=== PATIENT | male | born 1960 | race Caucasian/White ===

== ENCOUNTER 2019-10-02 11:48 | Inpatient (IN) | payer MEDICAID, OTHER ==
[2019-10-02 12:53] VITALS: BP 133/73
[2019-10-02] MEDS ORDERED: Magnesium Hydroxide (MOM) 30 mL UDC PO PRN (13:26)
[2019-10-02] MEDS ORDERED: Acetaminophen 500 MG TAB PO PRN (13:26)
--- NOTE | 2019-10-02 14:32 | History and Physical ---
History of Present Illness - HPI Chief Complaint: Psychosis HPI: 59 y/o White female who has been transferred from [facility]. Admitted tp [facility] for the following: * Recurrent Major Depression * Suicidal Ideation * H/O Attempted Suicide Vital Signs: Last Vital Signs Temp Pulse Resp BP 133/73 10/02/19 12:23 Pulse Ox Past Medical History Cardiovascular: Report: HTN, Hyperlipidemia Pulmonary: Report: No Pertinent Hx LIQUOR GALLERY OPERATOR: Report: No Pertinent Hx GI: Report: No Pertinent Hx Psych: Report: Depression Musculoskeletal: Report: Osteoarthritis Rheumatologic: Report: No pertinent Hx Infectious Disease: Report: No Pertinent Hx Renal/: Report: No Pertinent Hx Endocrine: Report: No Pertinent Hx Dermatology: Report: Psoriasis - Past Surgical History Past Surgical History: Total Hip Replacement Social History Smoke: <1 pack per day Alcohol: None Drugs: None Lives: Alone Domestic Violence: Negative - Medications Home Medications: Home Medication Medication Instructions Recorded Type Acetaminophen 650 mg PO ONCE 10/02/19 History Buspirone HCl 10 mg PO TID 10/02/19 History Lorazepam [Ativan] 1 mg PO ONCE 10/02/19 History Mirtazapine [Remeron] 30 mg PO HS 10/02/19 History Ondansetron [Ondansetron Odt] 4 mg PO ONCE 10/02/19 History QUEtiapine Fumarate [SEROquel] 25 mg PO BID 10/02/19 History Sertraline [Zoloft] 50 mg PO DAILY 10/02/19 History - Allergies Allergies/Adverse Reactions: Allergies Allergy/AdvReac Type Severity Reaction Status Date / Time No Known Allergies Allergy Verified 10/02/19 12:23 Review of Systems - Review of Systems Constitutional: Report: No Significant Eyes: Report: No Significant ENT: Report: No Significant Respiratory: Report: No Significant Cardiovascular: Report: No Significant Gastrointestinal: Report: No Significant Genitourinary: Report: No Significant Musculoskeletal: Report: No Significant Skin: Report: No Significant Neurological: Report: No Significant Physical Exam - Physical Exam Neck: Report: Within normal limits Cardiovascular Systems: Report: +s1/s2 noted Respiratory: Report: Breath Sounds are within normal limits Abdomen: Report: Non-tender to palpation Back: Report: Inspection of back is within normal limits. Extremities: Report: Non-tender to palpation. Skin: Report: Skin Rash noted Neuro/Psych: Report: A+Ox3, CN II-XII intact, No motor deficit, No sensory deficit - Assessment Assessment: * Recurrent Major Depression severe and currently active with Command Hallucinations to harm self * Suicidal Behavior without attempted self injury * Depression with suicidal ideation * History of attempted suicide * Fatigue due to depression * Anxiety * Insomnia * Bereavement * Dysthymic disorder since childhood * Hypertension * Dyslipidemia * Psoriasis * Tobacco Abuse * S/P Bilateral Hip Replacement - Plan Plan: * Admitted to Behavioral Health unit at [facility] * Continue medications for [facility] * Psychiatry Consult * Obtain labs on Friday Cranial Nerve Assessment - CRANIAL NERVES alcohol swab:: Yes (Normal) Distinguishes movements in peripheral field.:: Yes (Normal) up, down, sideways:: Yes (Normal) on forehead, cheeks and chin, chews symmetrically:: Yes (Normal) FACIAL VII: upper: Frowns Symmetrically:: Yes (Normal) FACIAL VII: Lower: Smiles Symmetrically:: Yes (Normal) both ears:: Yes (Normal) GLOSS-PHARYNGEAL IX: Has gag reflex:: Yes (Normal) VAGUS X: Can make guttural sounds:: Yes (Normal) ACCESSORY XI: Shrugs shoulders symmetrically:: Yes (Normal) tremors or fasciculation's:: Yes (Normal) - MOTOR spasticity, cogwheel, atrophy, tremor, asterixis, other: No (Normal) - COORDINATION Finger to nose, heel to blackwood, VIRGILIO, gait, Romberg: Yes (Normal) - SENSORY signs, Brudzinski, Kernig, neck rigidity:: Yes (Normal) - REFLEXES Brachioradials Right:: Yes (Normal) Brachioradials Left:: Yes (Normal) Biceps Right:: Yes (Normal) Biceps Left:: Yes (Normal) Triceps Right:: Yes (Normal) Triceps Left:: Yes (Normal) Knee Right:: Yes (Normal) Knee Left:: Yes (Normal) Ankle Right:: Yes (Normal) Ankle Left:: Yes (Normal) Babinski Right:: No (Normal) Babinski Left:: No (Normal)
[2019-10-03] MEDS: Multivitamin Tab PO SCH (09:00)
--- NOTE | 2019-10-03 11:23 | Psychiatric Evaluation ---
DATE OF SERVICE: 10/02/2019 IDENTIFYING DATA: The patient is a 59-year-old male, currently homeless. Information obtained by directly interviewing the patient as well as reviewing the admission papers and they are reliable. JUSTIFICATION OF HOSPITALIZATION: The patient is admitted here on a 5150 as a danger to self. CHIEF COMPLAINT: "I have been feeling depressed. I do not have any place to stay." HISTORY OF PRESENT ILLNESS: This is the first psychiatric hospitalization to [facility] for this 59-year-old who is reported to have been homeless for the past couple of months. The patient is reporting that he has a restraining order as his sister and [id number] took over his mother's care and he has no place to stay. The patient is reporting that he was in [place], he cannot go back there and he has to look for some place close by. PAST PSYCHIATRIC HISTORY: Please refer to the above. The patient has been treated with the Paxil in the past. MEDICAL HISTORY: Physical examination is requested by Dr. Clements. SUBSTANCE ABUSE HISTORY: The patient denies. PHYSICAL OR SEXUAL ABUSE HISTORY: None. LEGAL PROBLEMS: None at this time, except for the restraining order. MENTAL STATUS EXAMINATION: The patient is a 59-year-old, looking his stated age, superficially cooperative. Eye contact is fair. Mood is noted to be irritable. Affect is constricted. The patient is stating that he is feeling frustrated and depressed. The patient is reported to have voiced suicidal ideation, but no clear plans are voiced at this time. The patient is not homicidal. The patient denies active hallucinations or delusions are noted. The patient is alert and oriented x 3. The patient's attention span and concentration are noted to be fair. The patient is of average intelligence. The patient is motivated to seek treatment at this time. DIAGNOSES: AXIS I: Major depressive disorder, recurrent and moderate. AXIS II: None. AXIS III: As per Dr. Clements. IMMEDIATE TREATMENT PLAN: The patient is going to be continued on his BuSpar 5 mg 3 times a day for his anxiety. The patient is also going to be placed on the mirtazapine that is going to be given at 15 mg at bedtime and the patient is going to be continued on the sertraline 50 mg at bedtime. The patient is going to be given the Seroquel 25 mg at bedtime. With these medications, the patient is going to be closely monitored and encouraged to participate in the groups and verbalize the concerns and the social work nurse are going to be requested to look for placement of this patient. JOB# [id number]
[2019-10-04] MEDS: Multivitamin Tab PO SCH (08:52)
[2019-10-04] MEDS ORDERED: Magnesium Hydroxide (MOM) 30 mL UDC PO ONE (11:09)
--- NOTE | 2019-10-04 12:50 | Progress Notes ---
DATE: 10/04/2019 SUBJECTIVE: Staff was spoken to. The patient is interviewed. Mood is noted to be anxious and depressed. Affect is constricted. The patient is stating that he is frustrated with his life and he needs to have a safe place to go. The patient is still feeling frustrated and voicing suicidal ideation, but no clear plans are voiced. Insight and judgment at this time are noted to be improving. Impulse control seems to be fair and has been able to tolerate the medication. hatchery manager has been spoken to and they are going to be looking for placement of this patient. JOB# [id number]
--- NOTE | 2019-10-04 14:33 | Internal Medicine Prog Note ---
Internal Medicine Subjective - Subjective Service Date: 10/04/19 Patient seen and examined:: without staff Patient is:: awake Per staff patient has:: no adverse event, no episodes of fall (no complaints) Internal Medicine Objective - Results Recent Labs: Laboratory Last Values POC Glucose 122 MG/DL (70 - 105) H 10/02/19 15:45 - Physical Exam Vitals and I&O: Vital Signs Temp 97.4 F 10/04/19 14:19 Pulse 73 10/04/19 14:19 Resp 18 10/04/19 14:19 BP 129/86 10/04/19 14:19 Pulse Ox 96 10/04/19 14:19 Intake & Output 10/03/19 10/04/19 10/04/19 18:59 06:59 18:59 Intake Total 1100 240 Balance 1100 240 Intake: Oral 1100 240 Other: # Voids 1 1 # Bowel Movements 1 Stool Characteristics Formed Formed Formed Active Medications: Current Medications Acetaminophen (Tylenol) 650 mg PO Q4H PRN PRN Reason: Pain (Mild 1-3) Stop: 12/01/19 13:25 Acetaminophen (Tylenol Extra Strength) 1,000 mg PO Q6H PRN PRN Reason: Pain (Moderate 4-6) Stop: 12/01/19 13:25 Al Hydrox/Mg Hydrox/Simethicone (Maalox) 30 ml PO Q4HR PRN PRN Reason: GI DISTRESS Stop: 12/01/19 13:25 Buspirone HCl (Buspar) 5 mg PO TID BOZENA; Protocol Stop: 12/02/19 11:29 Last Admin: 10/04/19 13:26 Dose: 5 mg Ibuprofen (Motrin) 400 mg PO Q4H PRN PRN Reason: Pain (Severe 7-10) Stop: 12/01/19 13:25 Mirtazapine (Remeron) 15 mg PO HS BOZENA; Protocol Stop: 12/02/19 20:59 Last Admin: 10/03/19 20:56 Dose: 15 mg Multivitamins/Vitamin C (Theragran) 1 tab PO DAILY BOZENA Stop: 12/02/19 08:59 Last Admin: 10/04/19 08:52 Dose: 1 tab Quetiapine Fumarate (Seroquel) 25 mg PO HS BOZENA; Protocol Stop: 12/02/19 20:59 Last Admin: 10/03/19 20:57 Dose: 25 mg Sertraline HCl (Zoloft) 50 mg PO DAILY BOZENA; Protocol Stop: 12/02/19 11:29 Last Admin: 10/04/19 08:52 Dose: 50 mg Zolpidem Tartrate (Ambien) 5 mg PO HS PRN PRN Reason: Insomnia Stop: 12/01/19 13:25 Last Admin: 10/03/19 20:57 Dose: 5 mg HEENT: NC/AT Neck: Supple Lungs: CTAB Cardiovascular: RRR, Normal S1, Normal S2 Abdomen: soft, non-tender Internal Medicine Assmt/Plan - Assessment Assessment: 1. HTN 2. Hx of Hip replacements 3. Suicidal ideation - Plan Plan: continue supportive care reveiwed medical records d/w r.n.
[2019-10-05] MEDS: Multivitamin Tab PO SCH (08:39)
[2019-10-05] MEDS: Maalox 30 mL Cup PO PRN (16:50)
--- NOTE | 2019-10-05 19:23 | Progress Notes ---
DATE: 10/05/2019 SUBJECTIVE: Staff was spoken to. The patient is interviewed. Mood is noted to be depressed. The patient is stating that he does not have any money, he does not have any place to return to. The patient feels frustrated that his sister has taken a restraining order against him. Coping skills are noted to be very poor. Attention span and concentration are noted to be fair. Sleep and appetite are noted to be improving. manager student services has been spoken to with regard to discharge planning of this patient. If no place is available, possibly the patient is going to be discharged to a prison. JOB# [id number]
[2019-10-06] MEDS: Multivitamin Tab PO SCH (08:43)
--- NOTE | 2019-10-06 11:08 | Consultation ---
DATE OF CONSULTATION: 10/05/2019 HISTORY OF PRESENT ILLNESS: The patient is a 59-year-old male. The following is by review of the medical record as well as by the patient's self-report. According to record review, the patient is homeless and is being admitted on a 5150 as a danger to self. Upon interview, the patient states that he has been very depressed and that he is tired of being homeless and on his own. The patient stated that he is unable to connect with family and that his sister and [id number] have taken a restraining order out on him. The patient stated this was due to a conflict between them regarding his mother's care. The patient states he has no place to go. The patient does admit that he is feeling hopeless and helpless and had thoughts of ending his life. PAST MEDICAL HISTORY: Please see history and physical by Dr. Clements. PAST PSYCHIATRIC HISTORY: The patient states that he was diagnosed with depression many years ago and has been treated with Paxil. The patient did not recall the names of any physicians or psychiatrists or psychologists that have treated him in the past. The patient stated no previous psychiatric hospitalization. SUBSTANCE ABUSE HISTORY: The patient admits to using tobacco. He denied any illicit or recreational drug use or any alcohol use. BRIEF PSYCHOSOCIAL HISTORY: The patient is currently homeless. He has a sister who is not involved in his care. The patient states he has no place to stay and that he is homeless. The patient did not answer questions about educational history. The patient states he has been unemployed for many years. The patient states no specific lutheran affiliation. He denied any current legal problems other than the current 5150 hold. He denied any history of physical or sexual abuse. The patient is seeking placement. However, there may be financial issues with respect to being placed in a fpc facility. The spring encaser and social worker delinquency prevention are informed. MENTAL STATUS EXAMINATION: The patient appears to be of stated age. The patient's attitude is superficially cooperative. Eye contact is fair. Speech is spontaneous. Mood is anxious and depressed. Affect is mood congruent. Thought process is linear, but tangential, and includes passive suicide ideation with no clear plan or intention. The patient states that he feels hopeless and helpless as well as frustrated with his current circumstances. The patient denied any hallucinations or delusions. Impulse control is limited. Concentration is fair. The patient was able to sustain focus and attention. Sensorium is alert and oriented x 3. The patient seems to be of average intelligence. The patient was able to repeat 3 items given to him immediately. He recalled 2/3 after several minutes and the third with one hint. Immediate and short term memory seemed to be grossly intact. Long-term memory seems to be adequate. The patient did not participate in the interpretation of proverbs. Insight is poor. Judgment is compromised. DIAGNOSTIC IMPRESSION: AXIS I: Major depressive disorder, recurrent, moderate. AXIS II: Deferred. AXIS III: Per Dr. Clements. TREATMENT PLAN: The patient has been seen by Dr. German for psychiatric evaluation and for the management of the patient's psychotropic medications. The patient is being continued on BuSpar 5 mg 3 times a day for his anxiety as noted by the attending psychiatrist. The patient is also placed on mirtazapine at 15 mg at bedtime as well as sertraline 50 mg at bedtime and Seroquel 25 mg at bedtime. The patient will be closely monitored. We will provide supportive psychotherapy to include cognitive behavioral therapy to reduce the patient's depression. We will provide daily opportunities for the patient to verbally contract for safety, i.e., no self-harm. We will provide suicide prevention interventions. We will encourage the patient to verbalize any hopelessness, helplessness or suicidal thoughts to the staff. We will provide coping strategies for phase of life issues as well. We will provide reality integration. We will provide motivational enhancement for the patient to become compliant and stay compliant with all aspects of his care and treatment and to accept possible placement in a fpc facility and/or [place] [facility]. This will be determined by the attending psychiatrist along with the spring encaser. We will follow up in 2-3 days to continue the present treatment if the patient remains on the unit and is capable of demonstrating the capacity to benefit from psychology services. Thank you, Dr. German for this consult and the opportunity to participate with you in this patient's care. JOB# [id number] HALIMA
[2019-10-06] MEDS: Maalox 30 mL Cup PO PRN (15:40)
--- NOTE | 2019-10-06 19:32 | Progress Notes ---
DATE: 10/06/2019 PSYCHIATRIC PROGRESS NOTE SUBJECTIVE: Staff was spoken to. The patient is ____. Mood is noted to be anxious. The patient is stating that he has been trying to get to some place and he stated that he is homeless and he has to have a place and has no money left for this month. ASSESSMENT: The patient's depression is resolving. The patient is not suicidal or homicidal. No psychotic symptoms are noted. PLAN: To continue the patient with the current medications and work with the director of casework services with regards to finding a place for this patient. JOB# [id number]
[2019-10-07] MEDS: Multivitamin Tab PO SCH (08:20)
--- NOTE | 2019-10-07 11:37 | Progress Notes ---
DATE: 10/07/2019 SUBJECTIVE: Staff was spoken to. The patient is interviewed. Mood is noted to be anxious. The patient is not suicidal or homicidal. The patient is stating that his main problem is not having a place to stay. The patient is stating that he does not have any money left for this month and he states that he may be looking to go to a nursing home. The health and social care teacher have been informed of the patient's decision to go to a nursing home, possibly the patient is going to be discharged tomorrow for a followup on outpatient basis. JOB# [id number]
[2019-10-07] MEDS: Maalox 30 mL Cup PO PRN (20:09)
--- NOTE | 2019-10-07 20:30 | Progress Notes ---
DATE: 10/06/2019 PSYCHOLOGY PROGRESS NOTE SUBJECTIVE: The patient is seen in his room and is interviewed. Case is discussed with staff. The patient presents as anxious. He reports that he has no money and is nervous and fearful about being homeless again. The patient states he does feel a little bit more hopeful and is agreeing to possibly be temporarily placed in a nursing home. The patient continued to state that he was willing to follow through with continued psychology and psychiatric treatment on an outpatient basis. OBJECTIVE: Mood is anxious. Affect is mood congruent and reactive. Thought process shows to be goal oriented. The patient denied any hallucinations or delusions. The patient has no suicidal ideation, plan, or intention. There is no evidence of psychosis or any apparent cognitive deficits. The patient's memory function is adequate. The patient is awaiting placement. ASSESSMENT: Depression, seems to be resolving. PLAN: We provided coping strategies for the patient's current circumstances. We provided remotivation for the patient to stay compliant with the treatment that is being offered and also to follow through with outpatient therapy and medication if available. The patient is able to verbally contract for safety and is open to accepting placement. We will follow up in 2-3 days if the patient remains on the unit to continue the present treatment. However, the patient is most likely discharging. JOB# [id number] HALIMA
[2019-10-08] MEDS: Multivitamin Tab PO SCH (09:09)
--- NOTE | 2019-10-08 11:37 | Discharge Summary ---
DATE OF DISCHARGE: 10/08/2019 PSYCHIATRIC DISCHARGE SUMMARY IDENTIFYING DATA: The patient is a 59-year-old male, currently homeless. JUSTIFICATION OF HOSPITALIZATION: The patient is admitted on 5150 as a danger to self. CHIEF COMPLAINT: "I have been feeling depressed. I do not have a place to stay." DIAGNOSES AT THE TIME OF ADMISSION: AXIS I: Major depressive disorder, recurrent and moderate. AXIS II: None. AXIS III: As per Dr. Clements. DIAGNOSES AT THE TIME OF DISCHARGE: AXIS I: Major depressive disorder, recurrent and moderate. AXIS II: None. AXIS III: As per Dr. Clements. HOSPITAL COURSE AND RESPONSE TO TREATMENT: The patient has been observed on the inpatient unit, provided with supportive psychotherapy. The patient has been closely monitored and was noted to be doing fairly well. The patient has been placed on sertraline 50 mg and mirtazapine 15 mg at bedtime. The patient has been encouraged to participate in the groups and verbalize the concerns. The patient did not make any suicidal or homicidal ideations or gestures and hence the patient was discharged on 10/08/2019. Physical examination done by Dr. Clements is noted to be within normal limits. No major intervention was needed. Blood work done at the hospitalization is also noted to be within normal limits. HOSPITAL COURSE AND RESPONSE TO TREATMENT: Seems to be fairly gone well and hence the patient was discharged. MENTAL STATUS EXAMINATION AT THE TIME OF DISCHARGE: The patient's mood is noted to be anxious. Affect is appropriate. Not suicidal or homicidal. Insight and judgment are noted to be improving. Impulse control is noted to be fair. The patient is alert and oriented x 3. He is of average intelligence. Attention span and concentration are noted to be fair. The patient is not psychotic. Not suicidal or homicidal. DIAGNOSES AT THE TIME OF THE DISCHARGE: AXIS I: Major depressive disorder, recurrent and moderate. AXIS II: None. AXIS III: None. AFTERCARE PLAN: The patient is discharged to [facility] to be followed up on an outpatient basis. JOB# [id number]
--- NOTE | 2019-10-09 10:25 | Progress Notes ---
DATE: 10/08/2019 PSYCHOLOGY PROGRESS NOTE SUBJECTIVE: The patient is seen sitting at the edge of his bed in his room. The patient reports that he is feeling less depressed yet still concerned about his placement and his current circumstances. He denies any current suicidal ideation. OBJECTIVE: Mood is less depressed. The patient reports that he continues to feel anxious and depressed about his current circumstances, i.e., homelessness and estrangement from his family. The patient denied any suicidal ideation, plan or intention. The patient's thought process is goal oriented. He denied any delusions or hallucinations. The patient has been compliant with his treatment here on the unit. The patient is being discharged today according to staff. ASSESSMENT: The patient seems to be stabilizing and anticipates discharging. PLAN: As above. We provided coping strategies for phase of life issues as well as for adjustment to his current circumstances. We encouraged the patient to follow up with Psychiatry and Psychology on an outpatient basis. The patient was able to verbally contract for safety. No followup is indicated as the patient is discharging today. Thank you, Dr. German for this consult and the opportunity to participate with you in this patient's care. [facility]# [id number]
== END 2019-10-08 11:07 | disposition home or self-care (01) | DRG 885 ==
LOC: GERO 11:49
PROVIDERS: ADMIT Psychiatry & Neurology Psychiatry; ATTEND Psychiatry & Neurology Psychiatry
DX: F33.9 Major depressive disorder, recurrent, unspecified (principal); R45.851 Suicidal ideations; F41.9 Anxiety disorder, unspecified; G47.00 Insomnia, unspecified; I10 Essential (primary) hypertension; E78.5 Hyperlipidemia, unspecified; L40.9 Psoriasis, unspecified; F17.200 Nicotine dependence, unspecified, uncomplicated; Z96.643 Presence of artificial hip joint, bilateral; Z59.0 Homelessness
CPT/HCPCS: 82948-90; 83036-90; 90899; Z7610